=== PATIENT | male | born 2000 | race African-American/Black ===

== ENCOUNTER 2018-02-03 18:25 | Emergency (ER) | payer MEDICAID ==
[~2018-02-03] VITALS: Ht 165.1 cm; Wt 63.5 kg
[2018-02-03 20:45] VITALS: BP 115/75
== END 2018-02-03 21:20 | disposition home or self-care (01) ==
LOC: ER 18:25
DX: S83.92XA Sprain of unspecified site of left knee, initial encounter (principal); M62.838 Other muscle spasm; V49.59XA Passenger injured in collision with other motor vehicles in traffic accident, initial encounter; Y93.89 Activity, other specified; Y92.410 Unspecified street and highway as the place of occurrence of the external cause; Y99.8 Other external cause status
CPT/HCPCS: 29505; 73562

== ENCOUNTER 2021-04-27 09:07 | Emergency (ER) | payer BC, MEDICAID, OTHER ==
[~2021-04-27] VITALS: Ht 162.6 cm; Wt 63.5 kg
[2021-04-27 11:30] LABS: Basophils # (auto) 0.1 10 ^3/uL (0-0.2); Basophils % (auto) 0.6 % (0.0-2.0); Eosinophils # (auto) 0.6 10 ^3/uL (0-0.8); Eosinophils % (auto) 6.3 % (0.0-7.0); Hematocrit 45.5 % (41.0-53.0); Hemoglobin 15.3 g/dL (13.5-17.5); Lymphocytes # (auto) 4.1 10 ^3/uL (0.4-5.4); Mean Corpuscular Hemoglobin 31.3 pg (28.0-32.0); Mean Corpuscular Hgb Conc. 33.7 g/dL (32.0-36.0); Mean Corpuscular Volume 92.9 fL (80.0-100.0); Monocytes # (auto) 0.8 10 ^3/uL (0-1.3); Monocytes % (auto) 8.4 % (0.0-12.0); Neutrophils # (auto) 3.6 10 ^3/uL (1.6-8.6); Neutrophils % (auto) 39.7 % (37.0-80.0); Nucleated Red Blood Cells % 0.2 %; Red Cell Distribution Width 13.1 % (11.8-14.3)
[2021-04-27 11:37] LABS: Anion Gap 4 (5-15); Blood Urea Nitrogen 16 mg/dL (7-18); Calcium 9.7 mg/dL (8.5-10.1); Carbon Dioxide 28 mmol/L (21-32); Chloride 106 mmol/L (98-107); Glucose 81 mg/dL (74-106); Potassium 4.2 mmol/L (3.5-5.1); Sodium 138 mmol/L (136-145)
[2021-04-27 11:43] LABS: BUN/Creatinine Ratio 14.2; GFR African American 104 mL/min; GFR Non-African American 86 mL/min
[2021-04-27 12:37] VITALS: BP 120/72
== END 2021-04-27 12:45 | disposition home or self-care (01) ==
LOC: ER 09:07
DX: R07.89 Other chest pain (principal)
CPT/HCPCS: 36415; 80048; 84484; 85025; 93005

== ENCOUNTER 2023-03-31 20:46 | Emergency (ER) | payer SELFPAY ==
[~2023-03-31] VITALS: Ht 165.1 cm; Wt 63.6 kg
[2023-03-31 20:50] VITALS: BP 118/70; RESP 18; O2SAT 100
[2023-03-31 21:10] LABS: Basophils # (auto) 0.1 10 ^3/uL (0-0.2); Basophils % (auto) 1.1 % (0.0-2.0); Eosinophils # (auto) 0.4 10 ^3/uL (0-0.8); Hematocrit 44.1 % (41.0-53.0); Hemoglobin 14.6 g/dL (13.5-17.5); Lymphocytes % (auto) 37.2 % (10.0-50.0); Mean Corpuscular Hemoglobin 31.4 pg (28.0-32.0); Mean Corpuscular Hgb Conc. 33.2 g/dL (32.0-36.0); Mean Corpuscular Volume 94.6 fL (80.0-100.0); Monocytes # (auto) 0.9 10 ^3/uL (0-1.3); Monocytes % (auto) 10.7 % (0.0-12.0); Neutrophils # (auto) 3.8 10 ^3/uL (1.6-8.6); Nucleated Red Blood Cells % 0.1 %; Red Blood Cells 4.66 10^6/uL (4.5-5.90); Red Cell Distribution Width 14.6 % (11.8-14.3); White Blood Cell 8.2 10^3/uL (4.4-10.8)
[2023-03-31 21:32] LABS: Albumin 4.2 g/dL (3.4-5.0); Magnesium 2.5 mg/dL (1.6-2.6); Potassium 3.6 mmol/L (3.5-5.1)
[2023-03-31 21:36] LABS: BUN/Creatinine Ratio 6.7 (10.0-20.0); Bilirubin, Total 0.9 mg/dL (0.2-1.0); Total Protein 7.6 g/dL (6.4-8.2)
[2023-03-31 21:41] VITALS: PULSE 57
[2023-03-31 22:24] LABS: Urine Bacteria NONE SEEN /hpf (None Seen); Urine Blood Negative /uL (Negative); Urine Specific Gravity 1.005 (1.001-1.035); Urine WBC 1 /hpf (0 - 3)
== END 2023-03-31 22:49 | disposition home or self-care (01) ==
LOC: ER 20:47
DX: R07.89 Other chest pain (principal)
CPT/HCPCS: 36415; 71045; 80053; 81001; 83735; 84484; 85025; 93005

== ENCOUNTER 2025-02-22 03:25 | Emergency (ER) | payer MEDICAID, OTHER ==
[~2025-02-22] VITALS: Ht 165.1 cm; Wt 59.0 kg
[2025-02-22 03:32] VITALS: BP 127/64; PULSE 77; RESP 16; TEMP 97.9; O2SAT 100
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
== END 2025-02-22 04:38 | disposition home or self-care (01) ==
LOC: EDBD 03:25 → ER 03:25
DX: S30.1XXA Contusion of abdominal wall, initial encounter (principal); S20.219A Contusion of unspecified front wall of thorax, initial encounter; W22.10XA Striking against or struck by unspecified automobile airbag, initial encounter; Y93.I9 Activity, other involving external motion; Y92.488 Other paved roadways as the place of occurrence of the external cause; Y99.8 Other external cause status